=== PATIENT | male | born 1990 | race Caucasian/White ===

== ENCOUNTER 2019-05-24 11:32 | Emergency (ER) | payer BC ==
[~2019-05-24] VITALS: Ht 185.4 cm; Wt 112.0 kg
[~2019-05-24 11:32] MED LIST: AMOXICILLIN875 MG PO
[2019-05-24 12:03] VITALS: BP 142/92
== END 2019-05-24 12:24 | disposition home or self-care (01) | DRG 605 ==
LOC: ED 11:32
PROC: 0HQ0XZZ Repair Scalp Skin, External Approach (ICD-10-PCS; principal; 2019-05-24)
DX: S01.01XA Laceration without foreign body of scalp, initial encounter (principal); W20.8XXA Other cause of strike by thrown, projected or falling object, initial encounter; Y93.K9 Activity, other involving animal care; Y92.74 Orchard as the place of occurrence of the external cause